=== PATIENT | female | born 1995 | race Hispanic/Latino ===

== ENCOUNTER 2020-12-05 17:00 | Outpatient (CLI) | payer BC | END 2020-12-05 17:01 | disposition home or self-care (01) | LOC: SCSRAD 17:00 | PROVIDERS: ATTEND Family Medicine | DX: M54.5 Low back pain (principal); S84.11XA Injury of peroneal nerve at lower leg level, right leg, initial encounter | CPT/HCPCS: 72120 ==

== ENCOUNTER 2020-12-22 15:17 | Outpatient (CLI) | payer BC | END 2020-12-22 15:18 | disposition home or self-care (01) | LOC: BICMRI 15:17 | PROVIDERS: ATTEND Family Medicine | DX: M54.5 Low back pain (principal); M51.27 Other intervertebral disc displacement, lumbosacral region | CPT/HCPCS: 72148 ==

== ENCOUNTER 2021-09-05 15:51 | Outpatient (CLI) | payer BC | END 2021-09-05 15:52 | disposition home or self-care (01) | LOC: BICULT 15:51 | PROVIDERS: ATTEND Family Medicine | DX: N83.209 Unspecified ovarian cyst, unspecified side (principal) | CPT/HCPCS: 76856 ==